=== PATIENT | male | born 1995 | race Two or more races ===

== ENCOUNTER 2024-05-23 15:24 | Emergency (ER) | payer SELFPAY ==
[~2024-05-23] VITALS: Ht 167.6 cm; Wt 72.6 kg
--- NOTE | 2024-05-23 15:40 | NUR ---
FORTINO FROM HOME FOR FEVER AND KAUR X 4 DAYS.
[2024-05-23] MEDS ORDERED: ACETAMINOPHEN 325 MG TABLET ONE (16:26)
[2024-05-23] MEDS: ACETAMINOPHEN 325 MG TABLET PO ONE (16:30)
[2024-05-23] MEDS: IV NS 0.9% 1,000 ML BAG IV ONE (16:30)
--- NOTE | 2024-05-23 16:30 | NUR ---
BLOOD DRAWN AND SENT TO LAB
[2024-05-23 16:59] LABS: BASOPHILS % (AUTO) 0.6 % (0.0-2.0); HEMATOCRIT 46 % (39-51); LYMPHOCYTES # (AUTO) 0.5 K/uL (0.8-4.8); LYMPHOCYTES % (AUTO) 14.1 % (20.0-44.0); MEAN CORPUSCULAR HEMOGLOBIN 30 PG (26.0-33.0); MEAN CORPUSCULAR HGB CONC 35 g/dl (31.0-36.0); MEAN CORPUSCULAR VOLUME 88 fL (80-96); MONOCYTES # (AUTO) 0.3 K/uL (0.1-1.30); MONOCYTES % (AUTO) 8.4 % (2.0-12.0); NEUTROPHILS # (AUTO) 2.8 K/uL (1.8-8.9); NEUTROPHILS % (AUTO) 76.9 % (43.0-81.0); PLATELET COUNT (AUTO) 104 K/uL (150-450); RED BLOOD CELL COUNT(AUTO) 5.29 MIL/uL (4.5-6.0); WHITE BLOOD COUNT (AUTO) 3.6 K/uL (4.3-11.0)
[2024-05-23 17:09] LABS: CALCIUM, SERUM 9.3 mg/dL (8.5-10.1); POTASSIUM 3.4 mmol/L (3.5-5.1)
[2024-05-23 17:10] LABS: APPEARANCE,URINE Clear (CLEAR); BILIRUBIN,URINE Negative (NEGATIVE); BLOOD, URINE Negative Ery/uL (NEGATIVE); COLOR,URINE YELLOW (YELLOW); KETONES,URINE Trace mg/dL (NEGATIVE); LEUKOCYTE ESTERASE ,URINE Negative (NEGATIVE); NITRITE, URINE Negative (NEGATIVE); PROTEIN,URINE Trace mg/dl (NEGATIVE); UGLUCOSE Negative (NEGATIVE)
[2024-05-23 17:15] LABS: ALBUMIN 4.3 g/dL (3.4-5.0); BILIRUBIN,DIRECT 0.2 mg/dL (0.0-0.2); TOTAL PROTEIN, SERUM 7.4 g/dL (6.4-8.2)
[2024-05-23 17:17] LABS: LACTIC ACID 1.1 mmol/L (0.4-2.0)
[2024-05-23 17:17] LABS: ADD URINE CULTURE NO; BACTERIA,URINE None seen /HPF (None Seen); RBC,URINE 0-2 /HPF (0-2); SQUAMOUS EPITHELIAL CELL,UR Rare /HPF (None Seen); WBC,URINE 0-2 /HPF (0-3)
--- NOTE | 2024-05-23 20:15 | NUR ---
Patient discharged to home in stable condition. Written and verbal after care instructions given. Patient verbalizes understanding of instruction.IV removed. Catheter intact and site benign. Pressure and 4x4 applied to site. No bleeding noted.
[2024-05-23 20:33] VITALS: BP 126/71; TEMP 98; O2SAT 96
== END 2024-05-23 20:15 | disposition home or self-care (01) ==
LOC: ER 15:27
DX: B34.9 Viral infection, unspecified (principal); R50.9 Fever, unspecified; M79.18 Myalgia, other site; R10.32 Left lower quadrant pain
CPT/HCPCS: 99284; 74176; 96360; 85025; 80048; 87086; 83605; 83690; 80076; 81001; 36415; J7030